=== PATIENT | female | born 1950 | race Caucasian/White ===

== ENCOUNTER 2022-07-27 19:50 | Inpatient (IN) | payer MEDICARE, BC ==
[2022-07-27 21:19] VITALS: BMI 22.3
[2022-07-27] MEDS ORDERED: Dextrose 5% in Water 1,000 ML IV PRN (22:01)
[2022-07-27] MEDS ORDERED: Ondansetron PF 4 MG/2 ML Vial IVP PRN (22:01)
[2022-07-27] MEDS ORDERED: TETANUS, DIPHTHERIA TOX,ADULT (TDVAX) 0.5 ML VIAL IM ONE (22:01)
[2022-07-27] MEDS ORDERED: Dextrose 50% Abboject 50 ML SYRINGE SLOW IVP PRN (22:01)
[2022-07-27] MEDS ORDERED: hydrALAZINE 20 MG/ML VIAL SLOW IVP PRN (22:01)
[2022-07-27] MEDS ORDERED: Morphine 4 MG/ML VIAL SLOW IVP PRN (22:01)
[2022-07-27] MEDS ORDERED: traMADol HCl 50 MG TAB PO PRN (22:04)
[2022-07-27] MEDS: traMADol HCl 50 MG TAB PO SCH (23:20)
[2022-07-27] MEDS: Acetaminophen 500 MG TAB PO SCH (23:21)
[2022-07-27 23:42] LABS: Lactic Acid 3.6 mmol/L (0.5-2.2)
[2022-07-27] MEDS ORDERED: Magnesium 2 GM/50 ML(in water) 2 GM in Premix Bag 1 BAG IVPB SCH (23:45)
[2022-07-27] MEDS ORDERED: Potassium Phosphate 15 MMOL in Sodium Chloride 0.9% 250 ML 250 ML IVPB SCH (23:45)
[2022-07-27 23:46] LABS: ALT (SGPT) 21 U/L (8-55); AST (SGOT) 9 U/L (5-34); Albumin 3.1 g/dL (3.4-4.8); Alkaline Phosphatase 65 U/L (40-110); Anion Gap 11 mmol/L (10-20); BUN (Urea Nitrogen) 21 mg/dL (9.8-20.1); Bilirubin, Total 0.5 mg/dL (0.2-1.2); Calc. Creatinine Clearance 33 mL/min (70-130); Calcium 9.8 mg/dL (7.8-10.44); Carbon Dioxide 23 mmol/L (23-31); Chloride 107 mmol/L (98-107); Estimated GFR 45; Globulin 1.5 g/dL (2.4-3.5); Glucose 191 mg/dL (83-110); Magnesium 1.8 mg/dL (1.6-2.6); Phosphorus 3.6 mg/dL (2.3-4.7); Potassium 3.8 mmol/L (3.5-5.1); Protein, Total 4.6 g/dL (5.8-8.1); Sodium 137 mmol/L (136-145)
[2022-07-27 23:54] LABS: Hemoglobin 6.9 g/dL (12.0-16.0); Mean Corpuscular HGB CONC 35.2 g/dL (32.0-36.0); Mean Corpuscular Hemoglobin 31.8 pg (27.0-31.0); Mean Corpuscular Volume 90.5 fl (78.0-98.0); Red Blood Cell (RBC) Count 2.16 mill/uL (4.20-5.40)
[2022-07-27 23:58] LABS: INR-International Normal Ratio 1.1; Prothrombin Time 14.3 sec (12.0-14.7)
[2022-07-28 00:14] LABS: Band 16 % (5-11); Eosinophils 2 % (0-10); Lymphocytes 22 % (21-51); MDiff Complete? YES; Mean Platelet Volume 9.6 fL (7.4-10.4); Monocytes 14 % (0-10); Neutrophil 46 % (42-75); Platelet Count 46 10x3/uL (130-400); Platelet Morphology Comment Appears Decreased; White Blood Cell (WBC) Count 4.4 10x3/uL (4.8-10.8)
[2022-07-28 00:22] LABS: SARS-CoV-2 NAA Rapid Test Not Detected (NotDetected)
[2022-07-28] MEDS: Levothyroxine Sodium 88 MCG TAB PO SCH (05:17)
[2022-07-28] MEDS: Acetaminophen 500 MG TAB PO SCH ×3 (05:17→17:54)
[2022-07-28] MEDS: traMADol HCl 50 MG TAB PO SCH ×3 (05:17→17:53)
[2022-07-28] MEDS ORDERED: Sodium Chloride 0.9% 1,000 ML IV SCH (07:30)
[2022-07-28] MEDS ORDERED: Ferrous Sulfate 325 MG TAB PO SCH (08:00)
[2022-07-28] MEDS ORDERED: CEFAZOLIN 2 GM in Sodium Chloride 0.9% 100 ML IVPB SCH (08:30)
[2022-07-28] MEDS ORDERED: POSACONAZOLE 100 MG PO SCH (09:00)
[2022-07-28] MEDS: Hydrocortisone 10 mg Tablet PO SCH ×2 (09:15→20:30)
[2022-07-28] MEDS: valACYclovir 500 MG TAB PO SCH (09:15)
[2022-07-28] MEDS: Escitalopram Oxalate 20 mg Tablet PO SCH (09:15)
[2022-07-28] MEDS: Ascorbic Acid 500 mg Chewable Tablet PO SCH (09:15)
[2022-07-28] MEDS: Ferrous Sulfate 325 MG TAB PO SCH (09:15)
[2022-07-28] MEDS: Polyethylene Glycol 3350 17 GM Packet PO SCH (09:16)
[2022-07-28] MEDS: Senokot S 8.6-50 MG TAB PO SCH ×2 (09:17→20:30)
[2022-07-28 09:31] LABS: Lactic Acid 1.7 mmol/L (0.5-2.2)
[2022-07-28 10:16] LABS: Anion Gap 10 mmol/L (10-20); BUN (Urea Nitrogen) 25 mg/dL (9.8-20.1); Calc. Creatinine Clearance 29 mL/min (70-130); Calcium 9.6 mg/dL (7.8-10.44); Carbon Dioxide 25 mmol/L (23-31); Chloride 105 mmol/L (98-107); Estimated GFR 39; Glucose 117 mg/dL (83-110); Magnesium 2.3 mg/dL (1.6-2.6); Phosphorus 5.7 mg/dL (2.3-4.7); Sodium 135 mmol/L (136-145)
[2022-07-28 10:26] LABS: Eosinophils 5 % (0-10); Lymphocytes 29 % (21-51); MDiff Complete? YES; Mean Corpuscular HGB CONC 33.6 g/dL (32.0-36.0); Mean Corpuscular Hemoglobin 30.4 pg (27.0-31.0); Mean Corpuscular Volume 90.5 fl (78.0-98.0); Mean Platelet Volume 13.6 fL (7.4-10.4); Metamyelocyte 1 % (0-0); Monocytes 6 % (0-10); Neutrophil 55 % (42-75); Platelet Count 22 10x3/uL (130-400); Platelet Morphology Comment Appears Decreased; RBC Distribution Width 13.9 % (11.5-14.5); RBC Morphology Normal; Reactive Lymphocytes 3 % (0-10); White Blood Cell (WBC) Count 2.5 10x3/uL (4.8-10.8)
[2022-07-28] MEDS: Tacrolimus 0.5 MG CAP PO SCH ×2 (11:49→20:30)
[2022-07-28] MEDS: Megestrol Acetate 400 MG/10 ML UDCUP PO SCH (11:51)
[2022-07-28] MEDS: Sodium Chloride 0.9% 1,000 ML IV SCH (16:32)
[2022-07-28 20:22] LABS: Hemoglobin 8.1 g/dL (12.0-16.0); Mean Corpuscular HGB CONC 33.6 g/dL (32.0-36.0); Mean Corpuscular Volume 92.5 fl (78.0-98.0); RBC Distribution Width 13.7 % (11.5-14.5); Red Blood Cell (RBC) Count 2.62 mill/uL (4.20-5.40)
[2022-07-28 20:34] LABS: Lactic Acid 1.6 mmol/L (0.5-2.2)
[2022-07-28 20:37] LABS: Anion Gap 9 mmol/L (10-20); BUN (Urea Nitrogen) 27 mg/dL (9.8-20.1); CK (CPK) Less than 9 U/L (29-168); Calc. Creatinine Clearance 31 mL/min (70-130); Calcium 8.9 mg/dL (7.8-10.44); Carbon Dioxide 24 mmol/L (23-31); Chloride 106 mmol/L (98-107); Estimated GFR 41; Glucose 124 mg/dL (83-110); Magnesium 2.1 mg/dL (1.6-2.6); Potassium 5.1 mmol/L (3.5-5.1); Sodium 134 mmol/L (136-145)
[2022-07-28 20:49] LABS: Band 22 % (5-11); Eosinophils 5 % (0-10); Large Platelets SLIGHT; Lymphocytes 17 % (21-51); MDiff Complete? YES; Mean Platelet Volume 13.1 fL (7.4-10.4); Metamyelocyte 3 % (0-0); Monocytes 16 % (0-10); Neutrophil 37 % (42-75); Platelet Count 22 10x3/uL (130-400); Platelet Morphology Comment Appears Decreased
[2022-07-28 21:01] LABS: Bacteria/HPF None Seen HPF (None Seen); Bilirubin Negative (Negative); Blood, Urine Negative (Negative); CAUTI Indications for Culture Alt mental st,lethar; Clarity Clear (Clear); Glucose, Urine (Dipstick) Normal (Negative); Ketone, Urine Negative (Negative); Leukocyte 250 Leu/uL (Negative); Nitrite Negative (Negative); Protein, Urine (Dipstick) 20 mg/dL (Neg-Trace); Specific Gravity, Urine 1.014 (1.002-1.036); Squamous Epithelial None Seen HPF (0-3); Urobilinogen Normal mg/dL (Less than 2)
[2022-07-28 21:02] LABS: Urine Culture Reflex No No
[2022-07-28] MEDS: Cyclobenzaprine 10 MG TAB PO PRN (21:11)
[2022-07-29] MEDS: Acetaminophen 500 MG TAB PO SCH ×5 (00:13→23:50)
[2022-07-29] MEDS: traMADol HCl 50 MG TAB PO SCH ×5 (00:14→23:52)
[2022-07-29] MEDS: Sodium Chloride 0.9% 1,000 ML IV SCH (02:12)
[2022-07-29 04:18] LABS: Anion Gap 11 mmol/L (10-20); BUN (Urea Nitrogen) 30 mg/dL (9.8-20.1); Calc. Creatinine Clearance 35 mL/min (70-130); Calcium 9.2 mg/dL (7.8-10.44); Carbon Dioxide 23 mmol/L (23-31); Chloride 107 mmol/L (98-107); Estimated GFR 47; Glucose 110 mg/dL (83-110); Potassium 4.7 mmol/L (3.5-5.1); Sodium 136 mmol/L (136-145)
[2022-07-29] MEDS: Levothyroxine Sodium 88 MCG TAB PO SCH (05:24)
[2022-07-29 05:33] LABS: Band 37 % (5-11); Eosinophils 2 % (0-10); Hemoglobin 7.5 g/dL (12.0-16.0); Large Platelets SLIGHT; Lymphocytes 23 % (21-51); MDiff Complete? YES; Mean Corpuscular HGB CONC 32.6 g/dL (32.0-36.0); Mean Corpuscular Hemoglobin 29.9 pg (27.0-31.0); Mean Corpuscular Volume 91.8 fl (78.0-98.0); Mean Platelet Volume 13.1 fL (7.4-10.4); Monocytes 8 % (0-10); Myelocyte 1 % (0-0); Neutrophil 29 % (42-75); Platelet Count 27 10x3/uL (130-400); Platelet Morphology Comment Appears Decreased; RBC Distribution Width 13.8 % (11.5-14.5); Red Blood Cell (RBC) Count 2.52 mill/uL (4.20-5.40); White Blood Cell (WBC) Count 2.4 10x3/uL (4.8-10.8)
[2022-07-29] MEDS ORDERED: Fentanyl 250 MCG/5 ML VIAL ONE (07:53)
[2022-07-29] MEDS ORDERED: Dexmedetomidine 200 MCG/2 ML VIAL ONE (07:53)
[2022-07-29] MEDS ORDERED: CEFAZOLIN 2 GM VIAL ONE (08:01)
[2022-07-29] MEDS ORDERED: Sodium Chloride 0.9% 100 ML ONE (08:01)
[2022-07-29] MEDS ORDERED: Ondansetron PF 4 MG/2 ML Vial ONE (08:28)
[2022-07-29] MEDS ORDERED: PROPOFOL 200 MG/20 ML VIAL ONE (08:28)
[2022-07-29] MEDS ORDERED: Dexamethasone 20 MG/5 ML VIAL ONE (08:28)
[2022-07-29] MEDS ORDERED: Rocuronium Bromide 10 MG/ML (10ML VIAL) ONE (08:28)
[2022-07-29] MEDS ORDERED: Mannitol 12.5 GM/50 ML ONE (08:44)
[2022-07-29] MEDS: Ferrous Sulfate 325 MG TAB PO SCH (08:53)
[2022-07-29] MEDS: Ascorbic Acid 500 mg Chewable Tablet PO SCH (08:53)
[2022-07-29] MEDS: Hydrocortisone 10 mg Tablet PO SCH ×2 (08:53→20:51)
[2022-07-29] MEDS: Megestrol Acetate 400 MG/10 ML UDCUP PO SCH (08:53)
[2022-07-29] MEDS: Escitalopram Oxalate 20 mg Tablet PO SCH (08:53)
[2022-07-29] MEDS: Polyethylene Glycol 3350 17 GM Packet PO SCH (08:54)
[2022-07-29] MEDS: valACYclovir 500 MG TAB PO SCH (08:54)
[2022-07-29] MEDS: Tacrolimus 0.5 MG CAP PO SCH ×2 (08:54→20:51)
[2022-07-29] MEDS: Senokot S 8.6-50 MG TAB PO SCH ×2 (08:54→20:50)
[2022-07-29] MEDS ORDERED: SUGAMMADEX SODIUM 200 MG/2 ML VIAL ONE (09:54)
[2022-07-29] MEDS: CEFAZOLIN 2 GM in Sodium Chloride 0.9% 100 ML IVPB SCH ×2 (15:07→23:51)
[2022-07-29] MEDS: Cyclobenzaprine 10 MG TAB PO PRN (15:10)
[2022-07-29] MEDS ORDERED: Sodium Chloride 0.9% 1,000 ML IV SCH (18:00)
[2022-07-29 18:02] LABS: Hemoglobin 8.9 g/dL (12.0-16.0)
[2022-07-29 18:11] LABS: Anion Gap 13 mmol/L (10-20); BUN (Urea Nitrogen) 37 mg/dL (9.8-20.1); Calc. Creatinine Clearance 34 mL/min (70-130); Calcium 9.1 mg/dL (7.8-10.44); Carbon Dioxide 20 mmol/L (23-31); Chloride 107 mmol/L (98-107); Estimated GFR 47; Glucose 224 mg/dL (83-110); Potassium 5.2 mmol/L (3.5-5.1); Sodium 135 mmol/L (136-145)
[2022-07-30] MEDS: traMADol HCl 50 MG TAB PO SCH ×4 (05:44→23:54)
[2022-07-30] MEDS: Acetaminophen 500 MG TAB PO SCH ×4 (05:45→23:53)
[2022-07-30] MEDS: Levothyroxine Sodium 88 MCG TAB PO SCH (05:45)
[2022-07-30 06:20] LABS: INR-International Normal Ratio 1.1; Prothrombin Time 14.3 sec (12.0-14.7)
[2022-07-30 06:21] LABS: PTT 31.5 sec (22.9-36.1)
[2022-07-30 06:24] LABS: Phosphorus 3.8 mg/dL (2.3-4.7)
[2022-07-30 06:27] LABS: Anion Gap 10 mmol/L (10-20); BUN (Urea Nitrogen) 38 mg/dL (9.8-20.1); Calc. Creatinine Clearance 39 mL/min (70-130); Carbon Dioxide 24 mmol/L (23-31); Chloride 107 mmol/L (98-107); Estimated GFR 55; Glucose 133 mg/dL (83-110); Magnesium 1.7 mg/dL (1.6-2.6); Potassium 4.9 mmol/L (3.5-5.1); Sodium 136 mmol/L (136-145)
[2022-07-30 06:58] LABS: Mean Corpuscular HGB CONC 33.2 g/dL (32.0-36.0); Mean Corpuscular Hemoglobin 32.7 pg (27.0-31.0); Mean Corpuscular Volume 98.3 fl (78.0-98.0); Mean Platelet Volume 10.3 fL (7.4-10.4); Platelet Count 41 10x3/uL (130-400); RBC Distribution Width 15.1 % (11.5-14.5); Red Blood Cell (RBC) Count 1.82 mill/uL (4.20-5.40); White Blood Cell (WBC) Count 1.7 10x3/uL (4.8-10.8)
[2022-07-30 06:59] LABS: Anisocytosis SLIGHT = 6-15 cells (100X) (0-5/hpf); Band 32 % (5-11); Lymphocytes 14 % (21-51); MDiff Complete? YES; Monocytes 18 % (0-10); Neutrophil 34 % (42-75); Platelet Morphology Comment Appears Decreased
[2022-07-30] MEDS: Senokot S 8.6-50 MG TAB PO SCH ×2 (09:27→21:20)
[2022-07-30] MEDS: Polyethylene Glycol 3350 17 GM Packet PO SCH (09:27)
[2022-07-30] MEDS: Hydrocortisone 10 mg Tablet PO SCH ×2 (09:27→21:20)
[2022-07-30] MEDS: valACYclovir 500 MG TAB PO SCH (09:27)
[2022-07-30] MEDS: Ascorbic Acid 500 mg Chewable Tablet PO SCH (09:28)
[2022-07-30] MEDS: Escitalopram Oxalate 20 mg Tablet PO SCH (09:28)
[2022-07-30] MEDS: Ferrous Sulfate 325 MG TAB PO SCH (09:28)
[2022-07-30] MEDS ORDERED: Furosemide 40 MG/4 ML VIAL SLOW IVP SCH (10:00)
[2022-07-30] MEDS: Tacrolimus 0.5 MG CAP PO SCH ×2 (10:22→21:20)
[2022-07-30] MEDS: Megestrol Acetate 400 MG/10 ML UDCUP PO SCH (10:23)
[2022-07-30] MEDS ORDERED: Magnesium 2 GM/50 ML(in water) 2 GM in Premix Bag 1 BAG IVPB SCH (15:00)
[2022-07-31] MEDS: Levothyroxine Sodium 88 MCG TAB PO SCH (05:45)
[2022-07-31] MEDS: traMADol HCl 50 MG TAB PO SCH ×3 (05:50→17:08)
[2022-07-31] MEDS: Acetaminophen 500 MG TAB PO SCH ×3 (05:51→17:08)
[2022-07-31] MEDS: Ferrous Sulfate 325 MG TAB PO SCH (08:22)
[2022-07-31] MEDS: Hydrocortisone 10 mg Tablet PO SCH ×2 (08:22→21:39)
[2022-07-31] MEDS: Escitalopram Oxalate 20 mg Tablet PO SCH (08:22)
[2022-07-31] MEDS: Tacrolimus 0.5 MG CAP PO SCH ×2 (08:22→21:40)
[2022-07-31] MEDS: Ascorbic Acid 500 mg Chewable Tablet PO SCH (08:23)
[2022-07-31] MEDS: valACYclovir 500 MG TAB PO SCH (08:23)
[2022-07-31] MEDS: Polyethylene Glycol 3350 17 GM Packet PO SCH (08:23)
[2022-07-31] MEDS: Senokot S 8.6-50 MG TAB PO SCH ×2 (08:23→21:39)
[2022-07-31] MEDS: Megestrol Acetate 400 MG/10 ML UDCUP PO SCH (08:23)
[2022-07-31 09:16] LABS: PTT 32.9 sec (22.9-36.1); Prothrombin Time 13.7 sec (12.0-14.7)
[2022-07-31 09:33] LABS: Anion Gap 11 mmol/L (10-20); BUN (Urea Nitrogen) 43 mg/dL (9.8-20.1); Calc. Creatinine Clearance 44 mL/min (70-130); Calcium 9.9 mg/dL (7.8-10.44); Carbon Dioxide 23 mmol/L (23-31); Chloride 107 mmol/L (98-107); Estimated GFR 63; Glucose 117 mg/dL (83-110); Magnesium 2.1 mg/dL (1.6-2.6); Phosphorus 2.6 mg/dL (2.3-4.7); Potassium 4.5 mmol/L (3.5-5.1); Sodium 136 mmol/L (136-145)
[2022-07-31 10:29] LABS: Hemoglobin 10.2 g/dL (12.0-16.0); Mean Corpuscular HGB CONC 32.8 g/dL (32.0-36.0); Mean Corpuscular Hemoglobin 31.6 pg (27.0-31.0); Mean Corpuscular Volume 96.3 fl (78.0-98.0); Mean Platelet Volume 11.4 fL (7.4-10.4); Platelet Count 39 10x3/uL (130-400); RBC Distribution Width 14.9 % (11.5-14.5); Red Blood Cell (RBC) Count 3.24 mill/uL (4.20-5.40)
[2022-07-31 11:36] LABS: Neutrophil 21 % (42-75)
[2022-07-31 11:37] LABS: Band 38 % (5-11); Eosinophils 4 % (0-10); Lymphocytes 9 % (21-51); MDiff Complete? YES; Metamyelocyte 16 % (0-0); Monocytes 5 % (0-10); Myelocyte 3 % (0-0); Reactive Lymphocytes 5 % (0-10)
[2022-07-31] MEDS ORDERED: Enoxaparin Sodium 40 MG/0.4 ML SYRINGE SC SCH (21:00)
[2022-07-31 21:58] VITALS: BP 164/93; TEMP 97
== END 2022-07-31 22:35 | DRG 481 ==
LOC: SURG B 21:04
PROVIDERS: ADMIT Surgery; ATTEND Surgery
PROC: 0QSB04Z Reposition Right Lower Femur with Internal Fixation Device, Open Approach (ICD-10-PCS; principal; 2022-07-29)
PROC: 30233N1 Transfusion of Nonautologous Red Blood Cells into Peripheral Vein, Percutaneous Approach (ICD-10-PCS; 2022-07-29)
PROC: 6A551Z2 Pheresis of Platelets, Multiple (ICD-10-PCS; 2022-07-29)
PROC: 30233K1 Transfusion of Nonautologous Frozen Plasma into Peripheral Vein, Percutaneous Approach (ICD-10-PCS; 2022-07-29)
DX: S72.401A Unspecified fracture of lower end of right femur, initial encounter for closed fracture (principal); D61.818 Other pancytopenia; M97.11XA Periprosthetic fracture around internal prosthetic right knee joint, initial encounter; Z94.84 Stem cells transplant status; D62 Acute posthemorrhagic anemia; N17.9 Acute kidney failure, unspecified; E87.20 Acidosis, unspecified; W18.30XA Fall on same level, unspecified, initial encounter; R53.81 Other malaise; E03.9 Hypothyroidism, unspecified; F32.A Depression, unspecified; K21.9 Gastro-esophageal reflux disease without esophagitis; D64.9 Anemia, unspecified; Z96.653 Presence of artificial knee joint, bilateral; Z20.822 Contact with and (suspected) exposure to COVID-19; Z88.6 Allergy status to analgesic agent; Z85.528 Personal history of other malignant neoplasm of kidney; Z92.21 Personal history of antineoplastic chemotherapy; Z90.5 Acquired absence of kidney; Z79.890 Hormone replacement therapy; Z79.899 Other long term (current) drug therapy
CPT/HCPCS: 36415; 36430; 71045; 76705; 80048; 81001; 82550; 83605; 83735; 83880; 84100; 85025; 85060; 85610; 85730; 86850; 86900; 86901; C1713; J1100; J1650; J1940; J2150; J2270; J2405; J2597; J2704; J3010; J3475; J3490; J7050; J7507; P9016; P9035; P9059; U0002